=== PATIENT | female | born 1965 | race Caucasian/White ===

== ENCOUNTER 2016-05-26 05:31 | Day surgery (SDC) | payer OTHER ==
[2016-05-23 15:30] LABS: BILIRUBIN,URINE NEGATIVE (NEGATIVE); BLOOD, URINE NEGATIVE (NEGATIVE); CLARITY/URINE CLEAR (CLEAR); COLOR,URINE YELLOW (YELLOW); GLUCOSE,URINE NEGATIVE (NEGATIVE); KETONES,URINE NEGATIVE (NEGATIVE); LEUKOCYTE ESTERASE ,URINE NEGATIVE (NEGATIVE); NITRITE, URINE NEGATIVE (NEGATIVE); PH,URINE 6.5 (5.0-8.0); PROTEIN URINE NEGATIVE (NEGATIVE)
[2016-05-23 15:35] LABS: BASOPHILS % (AUTO) 0.4 % (0.0-2.0); EOSINOPHILS # (AUTO) 0.1 K/uL (0.0-0.4); EOSINOPHILS % (AUTO) 1.9 % (0.0-4.0); HEMATOCRIT 35.6 % (36-48); HEMOGLOBIN 11.8 g/dL (12.0-16.0); LYMPHOCYTES # (AUTO) 2.1 K/uL (1.0-5.5); LYMPHOCYTES % (AUTO) 28.6 % (20.5-51.5); MEAN CORPUSCULAR HEMOGLOBIN 26 pg (27-31); MEAN CORPUSCULAR HGB CONC 33 % (32-36); MEAN CORPUSCULAR VOLUME 79 fL (79.0-98.0); MONOCYTES # (AUTO) 0.5 K/uL (0.0-1.0); MONOCYTES % (AUTO) 6.5 % (1.7-9.3); NEUTROPHILS # (AUTO) 4.8 K/uL (1.8-7.7); NEUTROPHILS % (AUTO) 62.6 % (40.0-70.0); PLATELET COUNT (AUTO) 257 K/uL (130-430); RED BLOOD CELL COUNT(AUTO) 4.52 MIL/uL (4.2-6.2); RED CELL DISTRIBUTION WIDTH 17.1 % (9.0-15.0); WHITE BLOOD COUNT (AUTO) 7.5 K/uL (4.8-10.8)
[2016-05-23 15:45] LABS: INR 0.9 (0.8-1.2); PROTHROMBIN TIME 9.5 SECS (9.5-12.5)
[2016-05-23 15:47] LABS: CALCIUM 8.1 mg/dL (8.4-11.0); CREATININE 0.53 mg/dL (0.55-1.30); POTASSIUM 3.9 mmol/L (3.5-5.1); TOTAL BILIRUBIN 0.2 mg/dL (0.0-1.0); URIC ACID 2.5 mg/dL (2.4-7.0)
[~2016-05-26] VITALS: Ht 154.9 cm; Wt 76.2 kg
[~2016-05-26 05:31] MED LIST: DICL75TA5 PO; HYDR-1189 PO; LIDP TP; NOR10 PO
[2016-05-26 06:03] VITALS: O2SAT 100
[2016-05-26] MEDS ORDERED: ONDANSETRON HCL 4 MG/2 ML VIAL IVP PRN (08:00)
[2016-05-26] MEDS ORDERED: OXYCODONE/ACETAMINOPHEN 5-325 TABLET PO PRN (08:00)
[2016-05-26] MEDS ORDERED: MORPHINE 2 MG/ML INJ. SYRINGE IVP PRN (08:00)
[2016-05-26] MEDS ORDERED: LR 1,000 ML IV SCH (08:36)
[2016-05-26] MEDS ORDERED: MORPHINE 4 MG/ML INJ. SYRINGE IVP PRN ×3 (08:45)
[2016-05-26] MEDS ORDERED: METOCLOPRAMIDE HCL 10 MG/2 ML VIAL IVP PRN (08:45)
[2016-05-26] MEDS ORDERED: MORPHINE 4 MG/ML INJ. SYRINGE ONE (10:31)
[2016-05-26 12:49] VITALS: BP 132/82; PULSE 80; RESP 14
[2016-05-26] MEDS ORDERED: MIDAZOLAM HCL 5 MG/5 ML VIAL ONE (14:00)
[2016-05-26] MEDS ORDERED: ROCURONIUM BROMIDE 10 MG/ML (ZEMURON) ONE (14:00)
[2016-05-26] MEDS ORDERED: ONDANSETRON HCL 4 MG/2 ML VIAL ONE (14:00)
[2016-05-26] MEDS ORDERED: SEVOFLURANE 15 MIN GAS INH ONE (14:00)
[2016-05-26] MEDS ORDERED: BUPIVACAINE /EPINEPHRINE/PF 0.5% 30 ML VIAL INJ ONE (14:00)
[2016-05-26] MEDS ORDERED: KETOROLAC TROMETHAMINE 30 MG VIAL ONE (14:00)
[2016-05-26] MEDS ORDERED: CEFAZOLIN 2 GM IVPB PREMIX 50 ML IV ONE (14:00)
[2016-05-26] MEDS ORDERED: fentaNYL CITRATE/PF 100 MCG/2 ML AMP ONE (14:00)
[2016-05-26] MEDS ORDERED: fentaNYL CITRATE 250 MCG/5 ML AMP ONE (14:00)
[2016-05-26] MEDS ORDERED: LR 1,000 ML IV.SOLN IV ONE (14:00)
== END 2016-05-26 12:30 | disposition home or self-care (01) ==
LOC: SDS 05:31 → SMU 06:59 → SDS 12:30
DX: M75.101 Unspecified rotator cuff tear or rupture of right shoulder, not specified as traumatic (principal); M75.51 Bursitis of right shoulder; M25.811 Other specified joint disorders, right shoulder; I10 Essential (primary) hypertension; Z96.652 Presence of left artificial knee joint; Z98.84 Bariatric surgery status; M19.90 Unspecified osteoarthritis, unspecified site; Z87.891 Personal history of nicotine dependence
CPT/HCPCS: 23410; 23415; 36415; 80053; 81003; 84550; 85025; 85610; 85730; 88305; 88311; C1713; J0690; J1885; J2250; J2270; J2405; J3010 ×2; J3490; J7120; L3650

== ENCOUNTER 2017-01-05 14:32 | Outpatient (CLI) | payer OTHER | END 2017-01-05 19:13 | disposition home or self-care (01) | LOC: SMA 14:32 | PROVIDERS: ATTEND Family Medicine | DX: Z12.31 Encounter for screening mammogram for malignant neoplasm of breast (principal) | CPT/HCPCS: G0202 ==

== ENCOUNTER 2018-01-28 13:43 | Outpatient (CLI) | payer OTHER | END 2018-01-28 19:55 | disposition home or self-care (01) | LOC: SMA 13:43 | PROVIDERS: ATTEND Family Medicine | DX: Z12.31 Encounter for screening mammogram for malignant neoplasm of breast (principal) | CPT/HCPCS: 77067 ==

== ENCOUNTER 2019-02-03 14:15 | Outpatient (CLI) | payer OTHER | END 2019-02-03 17:51 | disposition home or self-care (01) | LOC: SMA 14:15 | PROVIDERS: ATTEND Family Medicine | DX: Z12.31 Encounter for screening mammogram for malignant neoplasm of breast (principal) | CPT/HCPCS: 77067 ==

== ENCOUNTER 2019-05-19 06:25 | Day surgery (SDC) | payer OTHER ==
[~2019-05-19] VITALS: Ht 154.9 cm; Wt 79.8 kg
[2019-05-19] MEDS ORDERED: SIMETHICONE 40 MG/0.6 ML ML ONE (08:10)
[2019-05-19] MEDS: fentaNYL CITRATE/PF 100 MCG/2 ML AMP ONE ×3 (08:27→08:33)
[2019-05-19] MEDS: MIDAZOLAM HCL 5 MG/5 ML VIAL ONE ×4 (08:27→08:35)
[2019-05-19 11:19] VITALS: BP_SYST 113
[2019-05-19] MEDS ORDERED: DIPHENHYDRAMINE INJ 50 MG/ML VIAL ONE (11:39)
== END 2019-05-19 09:45 | disposition home or self-care (01) ==
LOC: SMU 06:25 → SDS 06:25
PROVIDERS: ATTEND Internal Medicine
DX: D64.9 Anemia, unspecified (principal); K62.1 Rectal polyp; K29.50 Unspecified chronic gastritis without bleeding; I10 Essential (primary) hypertension; Z98.84 Bariatric surgery status
CPT/HCPCS: 36415; 43239; 45380; 87081; 88305; 88312; 88313; 99152; J1200; J2250; J3010; J7030

== ENCOUNTER 2020-02-13 13:16 | Outpatient (CLI) | payer OTHER | END 2020-02-13 20:56 | disposition home or self-care (01) | LOC: SMA 13:16 | PROVIDERS: ATTEND Family Medicine | DX: Z12.31 Encounter for screening mammogram for malignant neoplasm of breast (principal) | CPT/HCPCS: 77067 ==